=== PATIENT | female | born 1945 | race Caucasian/White ===

== ENCOUNTER 2024-12-21 07:39 | Day surgery (SDC) | payer MEDICARE, SELFPAY ==
[2024-12-15 13:46] LABS: Hematocrit 39.6 % (37-47); Hemoglobin 13.2 g/dL (12.0-15.0); Mean Corp Hgb Conc 33.3 g/dL (32-36); Mean Corpuscular Hgb 31.4 pg (27.0-32.0); Mean Corpuscular Volume 94.3 fL (81-99); Mean Platelet Vol. 10.3 fl (6.2-12.0); Platelet Count 359 K/mm3 (150-450); RBC Distribution Width CV 12.1 % (11.6-14.6); RBC Distribution Width SD 42.1 fl (35.1-43.9)
[2024-12-15 16:30] LABS: Anion Gap 12 (5-15); BUN 18 mg/dL (4-19); BUN/Creat Ratio 23.4 RATIO (10-20); Calcium,Total 9.8 mg/dL (7.6-11.0); Carbon Dioxide 24.3 mmol/L (21.0-32.0); Chloride 99 mmol/L (98-108); Creatinine, Serum 0.75 mg/dL (0.70-1.20); EST Glomerular Filtration Rate 81 (>60); Glucose 148 mg/dL (70-99); Potassium 4.2 mmol/L (3.3-5.1); Sodium Level 136 mmol/L (133-145)
[2024-12-21] VITALS (9 sets, daily range): BP systolic 124–154; BP diastolic 59–84; PULSE 64–76; RESP 14–18; TEMP 36.1–36.6; O2SAT 95–99; BMI 29.0
[2024-12-21] MEDS: Lactated Ringers 1,000 ML 15 ML IV (08:07)
--- NOTE | 2024-12-21 08:10 | PCM.PRE.AN2 ---
ASA Classification* ASA Classification ASA Classification: 2 Assessment & Plan Anesthesia* Anesthesia Assessment Anesthesia Assessment: Discussed sedation and/or anesthesia options, risks, benefits, and alternatives with patient/parents/legal guardian/POA. Questions invited. The patient/parents/legal guardian/POA seems to understand and agrees to proceed with anesthesia plan. Reviewed the physical assessment, medical history, allergy history and patient home medications list prior to surgery/procedure/anesthetic and documented any changes. Performed airway and anesthesia risk assessments. Anesthesia Type Anesthesia Type: MAC History Source History Obtained from:: Patient and Chart Anesthesia Focused Assessment* Temperature: 97.8 F Pulse Rate: 70 Blood Pressure: 154/60 Respiratory Rate: 18 Pulse Ox: 96 Oxygen Delivery Method: Room Air Airway Assessment Mouth opens: >3 cm Mallampati Score: III Teeth Condition: Intact Focused Labs Anesthesia Preop lab: CBC WBC 10.0 K/mm3 (4.4-11.0) 12/15/24 13:12/15/24 RBC 4.20 M/mm3 (4.2-5.4) 12/15/24 13:12/15/24 Hgb 13.2 g/dL (12.0-15.0) 12/15/24 13:12/15/24 Hct 39.6 % (37-47) 12/15/24 13:12/15/24 Plt Count 359 K/mm3 (150-450) 12/15/24 13:12/15/24 CHEMISTRY Potassium 4.2 mmol/L (3.3-5.1) 12/15/24 13:12/15/24 Sodium 136 mmol/L (133-145) 12/15/24 13:12/15/24 BUN 18 mg/dL (4-19) 12/15/24 13:12/15/24 Creatinine 0.75 mg/dL (0.70-1.20) 12/15/24 13:12/15/24 Glucose 148 mg/dL (70-99) H 12/15/24 13:07 12/15/24 COAG Pre-Assessment Diagnosis/Proposed Procedure Planned Operative Procedure(s): Cysto, Injection Bulkamid Anesthesia History Anesthesia History - general inspector: Anesthesia History - general inspector Hx Hospitalization No 12/14/24 11:10 Any Problems With Anesthesia No 12/14/24 11:10 Cholinesterase deficiency No 12/14/24 11:10 You/Your Family Experience No 12/14/24 11:10 fever (hyperthermia) with Relationship Recent Exposure to Contagious No 12/21/24 08:04 Disease Does patient have nerve No 12/14/24 11:10 stimulator Patient instructed to have device shut off --Does patient have Pacemaker No 12/21/24 08:04 or ICD? When Was Last Pacemaker Check QUESTION #4 FULL TEXT: You/Your Family Experience fever (hyperthermia) with Anesthesia Last Oral Intake Last Oral intake: Last Oral Intake NPO since 06:00 12/21/24 08:04 Meds taken in AM with sips of Yes 12/21/24 08:04 water? Meds patient instructed to see med rec 12/21/24 08:04 take am of surgery PONV PONV - general inspector: PONV - general inspector Female Yes 12/14/24 11:10 HX of Motion Sickness No 12/14/24 11:10 HX of N/V After Surgery No 12/14/24 11:10 Non-Smoker Yes 12/14/24 11:10 Duration of Surgery greater No 12/14/24 11:10 than 60 minutes Number of Risk Factors 2 12/14/24 11:10 PONV Score Moderate Risk 12/14/24 11:10 Height & Weight Height & Weight: Anesthesia: Height & Weight Height 5 ft 5 in 12/21/24 08:04 Weight: 79 kg 12/21/24 08:04 Body Mass Index (BMI) 29.0 12/21/24 08:04 Respiratory Assessment Respiratory Assessment - general inspector: Respiratory Tract Infection Hx - general inspector Hx Respiratory Tract Infection No 12/14/24 11:10 STOP Sleep Apnea STOP Sleep Apnea - general inspector: STOP Sleep Apnea - general inspector Hx Hypertension Yes: CONTROLLED WITH MED 12/14/24 11:10 Hx Sleep Apnea No 12/14/24 11:10 CPAP BIPAP Do you snore loudly (louder No 12/14/24 11:10 than talking or can be heard Do you often feel tired/ No 12/14/24 11:10 fatigued/ sleepy during daytime? Has anyone observed you stop No 12/14/24 11:10 breathing during sleep? STOP Results Negative 12/14/24 11:10 QUESTION #5 FULL TEXT : Do you snore loudly (louder than talking or can be heard through closed doors)? Tobacco Use History Tobacco Use History - general inspector: Tobacco Use History - general inspector Tobacco Use Smoking Status Never smoker 12/14/24 11:10 Hx Tobacco Use No 12/14/24 11:10 Years Smoking Packs Smoked per Day Smoking Cessation Date was within the last 15 years Hx Smoking Cessation Date Hx Smoking Cessation Counseling Hematologic Medial History Hematologic Hx - general inspector: Hematologic Medical Hx - physician's assistant Hx of Blood Transfusion No 12/14/24 11:10 Hx of Transfusion in last 3 No 12/14/24 11:10 Months Date of Last Transfusion (if within last 3 months) Ever experience any problems No 12/14/24 11:10 with transfusion(s)? Specify any problems Hx of Preganancy in last 3 N/A 12/14/24 11:10 Months Nurse Filling Out Transfusion NBUCHER 12/14/24 11:10 & Questions: Date: 12/14/24 12/14/24 11:10 Time: 11:11 12/14/24 11:10 Patient unable to answer at this time (ie. confused, unrespo /Reproduction History /Reproductive History - general inspector: /Reproductive Hx- general inspector Hx Now No 12/14/24 11:10 Gestational Age (in weeks): EDC: Hx Hx Para Hx Section SAB No 12/14/24 11:10 Active Medications Active Medications: Current Medications Generic Name Dose Route Start Last Admin Trade Name Freq PRN Reason Stop Dose Admin Cefazolin Sodium 2 gm/ Sodium 110 mls @ 150 mls/hr 12/21/24 09:20 Chloride IV 12/21/24 10:03 INTRAOP ONE Lactated Ringer's 1,000 mls @ 15 mls/hr 12/21/24 08:00 12/21/24 08:07 IV 15 mls/hr .Q48H JASMIN Administration PFSH Medical History Wears glasses Post-menopausal Arthritis High cholesterol History of IBS Non-smoker Home Medications ?Medication ?Instructions ?Recorded ?Last Taken ?Type atorvastatin 10 mg tablet 10 mg PO QHS 12/14/24 Unknown History calcium 500 mg (as 1 tab PO DAILY 12/14/24 Unknown History carbonate)-vitamin D3 10 mcg (400 unit) tablet (Calcium 500 + D) cholecalciferol (vitamin D3) 25 25 mcg PO DAILY 12/14/24 Unknown History mcg (1,000 unit) capsule (Vitamin D3) coenzyme Q10 100 mg capsule 100 mg PO DAILY 12/14/24 Unknown History diltiazem HCl 240 mg 240 mg PO QHS 12/14/24 Unknown History capsule,extended release 24 hr estradiol 0.01% (0.1 mg/gram) 1 g vaginal DAILY 12/14/24 Unknown History vaginal cream gabapentin 300 mg capsule 300 mg PO QHS 12/14/24 Unknown History hydrochlorothiazide 25 mg tablet 25 mg PO DAILY 12/14/24 Unknown History irbesartan 300 mg tablet 300 mg PO DAILY 12/14/24 12/21/24 06:00 History mecobalamin (vitamin B12) 1,000 1,000 mcg PO DAILY 12/14/24 Unknown History mcg lozenges qespwtmi-bvpecern-fjxig acid 500 1 tab PO DAILY 12/14/24 Unknown History mcg-lutein 5 mg-zeaxanth 1 mg tablet (Macular Vitamin) Allergy/AdvReac Type Severity Reaction Status Date / Time oxycodone (From Percocet) Allergy Severe Angioedema Verified 12/21/24 08:03 codeine AdvReac Intermediate Nausea Verified 12/21/24 08:03 diclofenac AdvReac Intermediate Nausea Verified 12/21/24 08:03 ibuprofen AdvReac Intermediate Nausea Verified 12/21/24 08:03 meloxicam AdvReac Intermediate Nausea Verified 12/21/24 08:03 methylprednisolone AdvReac Intermediate PALPITATION Verified 12/21/24 08:03 S naproxen AdvReac Intermediate PALPITATION Verified 12/21/24 08:03 S Opioids - Morphine Analogues AdvReac Intermediate Nausea/Vom/ Verified 12/21/24 08:03 Diarrhea prednisone AdvReac Intermediate PALPITATIOI Verified 12/21/24 08:03 NS Surgical History History of back surgery (~2022) History of cardiac radiofrequency ablation History of breast biopsy History of total right knee replacement Social History Smoking Status: Never smoker Addt'l Information Additional Findings: >4 METS Review of Systems (Anesthesia) ROS Narrative System reviewed and no additional complaints, except as documented. Physical Exam Const alert and oriented x3 Resp normal respiratory effort and normal air movement Auscultation: clear to auscultation bilaterally Cardio regular rate and regular rhythm
--- NOTE | 2024-12-21 09:19 | EX.PCM.DISCH ---
Discharge Instructions Diet Discharge Diet: No restrictions Activity Discharge Activity: May Shower Additional Activity Instructions:: No strenuous activity for 2 days, no exercise and no walking dog Dressing / Incision Call your doctor if your incision/area has: Continuous Slow Oozing, Sudden Increased Bleeding, Increased Pain/ Swelling and Foul Smelling Discharge Call your doctor if you observe: Fever of 101 or Higher, Inability to urinate and Inability to have a bowel movement Follow Up Care Please Follow Up With: Stephanie Herrera MD When: 1 to 2 weeks in the office, the staff will call to make arrangements. Test Results: Test results from this visit will be discussed in further detail at your follow-up appointment, if applicable. Discharge Plan Admission Attending Provider: Stephanie Herrera Primary Care Provider: Guerita Stephen Instructions Print Language: Armenian Discharge Orders/Prescriptions Prescriptions: New phenazopyridine 100 mg tablet 100 mg PO TID PRN (Reason: pain) 30 Days Qty: 30 3RF cephalexin 500 mg capsule 500 mg PO Q12 3 Days Qty: 6 0RF ondansetron 4 mg tablet,disintegrating 4 mg PO Q8H PRN (Reason: nausea and vomiting) Qty: 10 0RF Continued calcium carbonate-vitamin D3 [Calcium 500 + D] 500 mg-10 mcg (400 unit) tablet 1 tab PO DAILY cholecalciferol (vitamin D3) [Vitamin D3] 25 mcg (1,000 unit) capsule 25 mcg PO DAILY coenzyme Q10 100 mg capsule 100 mg PO DAILY mecobalamin (vitamin B12) 1,000 mcg lozenge 1,000 mcg PO DAILY Rx Instructions: allow to dissolve in mouth OR may chew lightly before swallowing Macular Vitamin 500-5-1 mcg-mg-mg tablet 1 tab PO DAILY atorvastatin 10 mg tablet 10 mg PO QHS diltiazem HCl 240 mg capsule,extended release 24hr 240 mg PO QHS estradiol 0.01 % (0.1 mg/gram) cream 1 g vaginal DAILY gabapentin 300 mg capsule 300 mg PO QHS hydrochlorothiazide 25 mg tablet 25 mg PO DAILY irbesartan 300 mg tablet 300 mg PO DAILY Disposition Disposition (needs filled in before D/C Order can be placed): Home, Self Care
--- NOTE | 2024-12-21 09:21 | OP.PCM_ITS ---
Operative Report (Standard) Operative Information Date of Procedure: 12/21/24 Pre-Operative Diagnosis: Intrinsic sphincter deficiency, stress urinary incontinence Post-Operative Diagnosis: Same Surgery/Procedure Performed: Bulkamid, cystoscopy still pump operator: No Type of Anesthesia: MAC RN Documented Start/Stop Times: Operation Date: 12/21/24 09:20 Case Time Into Pre-Op 12/21/24 07:46 Out of Pre-Op 12/21/24 09:22 Anesthesia Start 12/21/24 09:23 Into Room 12/21/24 09:23 Procedure Start 12/21/24 09:36 Procedure Start Time: 09:36 Procedure Stop Time: 09:38 Select all DRAINS/GRAFTS/IMPLANTS that apply: Implanted device Implanted device details: Bulkamid Estimated Blood Loss: <5cc Specimen collected: No Description of surgery: The patient is a 79-year-old female with intrinsic sphincter deficiency and stress urinary incontinence. Informed consent was obtained, she presents for surgical intervention with Bulkamid injection. She was taken to the operating room and placed on the operating room table. Anesthesia monitored the head, neck, airway, IV access and vital signs throughout the case. Once anesthesia was appropriately administered, she was placed into dorsolithotomy position was prepped and draped in usual sterile fashion. The red rubber catheter was utilized to empty her bladder. The Bulkamid cystoscope was inserted into the urethra. At the bladder neck the needle was inserted to 2 cm and the entire apparatus was brought back so that the needle was at the bladder neck. At the 7 o'clock position the needle with the bevel medial was inserted into the submucosa and one half of a syringe of Bulkamid was injected creating a pillow. The same process was repeated at the 5 o'clock position, 1 o'clock position and finally the 11 o'clock position. The pillows were coapted appropriately. The cystoscope was removed. She was awakened and taken to the recovery room in good condition. There were no complications during this procedure. Surgical Findings: 4 pillows of Bulkamid coapted appropriately Complications Complications: No Admit VTE Documentation VTE Present on Admission: Yes VTE Mechan Device Prophylaxis: SCD's VTE Pharm Prophylaxis ordered?: No Reason prophylaxis not ordered: Treatment Not Indicated
[2024-12-21] MEDS: Cefazolin 2 GM in 0.9% Normal Saline (100mL Bag) 100 ML IV (09:23)
--- NOTE | 2024-12-21 09:59 | PCM.POST.ANE ---
Anesthesia: Postop Eval I Current Vital Signs Temperature: 97.6 F Pulse Rate: 72 Blood Pressure: 124/74 Respiratory Rate: 14 Pulse Ox: 96 Oxygen Delivery Method: Room Air Assessment Airway patent: Yes Spontaneous unlabored respirations: Yes Mental status: Awake nausea: No Vomiting: No Anesthesia Complication: No Fluid Hydration Crystalloid volume administer (ml): 400 Total IV fluid infused: 400 Progress Note Anesthesia document: Postop Eval 1 completed: Yes
--- NOTE | 2024-12-21 10:55 | POSTOPAN2_ITS ---
Anesthesia Postop Eval I Sum Postop Eval Completion status Anesthesia document: Postop Eval 1 completed: Yes Anesthesia Postop Eval I Summary Anesthesia Postop Eval I Summary: Anesthesia Postop Eval I: Assessment Summary Airway patent Yes 12/21/24 09:59 PROGRAM [email or web address] Spontaneous unlabored Yes 12/21/24 09:59 PROGRAM [email or web address] respirations Mental status Awake 12/21/24 09:59 PROGRAM [email or web address] nausea No 12/21/24 09:59 PROGRAM ADMINISTRATOR.[email or web address] Vomiting No 12/21/24 09:59 PROGRAM [email or web address].[email or web address] Anesthesia Postop Eval I: Fluid Summary Crystalloid volume administer 400 12/21/24 09:59 PROGRAM [email or web address] (ml) Colloids volume administered ( ml) Blood Product volume administered (ml) Total IV fluid infused 400 12/21/24 09:59 PROGRAM [email or web address].[email or web address] Anesthesia Postop Eval I: Summary Notes Anesthesia Complication No 12/21/24 09:59 PROGRAM [email or web address].[email or web address] Anesthesia Complication Comment: Post-operative progress note Anesthesia: Postop Eval II Evaluation Mental status: Awake and Calm Pain Level: 1 nausea: No Vomiting: No Complications Anesthesia Complication: No
--- NOTE | 2024-12-21 10:55 | PCM.POSTANE2 ---
Anesthesia Postop Eval I Sum Postop Eval Completion status Anesthesia document: Postop Eval 1 completed: Yes Anesthesia Postop Eval I Summary Anesthesia Postop Eval I Summary: Anesthesia Postop Eval I: Assessment Summary Airway patent Yes 12/21/24 09:59 [email or web address] Spontaneous unlabored Yes 12/21/24 09:59 [email or web address] respirations Mental status Awake 12/21/24 09:59 [email or web address] nausea No 12/21/24 09:59 WARP [email or web address].[email or web address] Vomiting No 12/21/24 09:59 WARP [email or web address] Anesthesia Postop Eval I: Fluid Summary Crystalloid volume administer 400 12/21/24 09:59 WARP [email or web address] (ml) Colloids volume administered ( ml) Blood Product volume administered (ml) Total IV fluid infused 400 12/21/24 09:59 WARP [email or web address].[email or web address] Anesthesia Postop Eval I: Summary Notes Anesthesia Complication No 12/21/24 09:59 WARP [email or web address].[email or web address] Anesthesia Complication Comment: Post-operative progress note Anesthesia: Postop Eval II Evaluation Mental status: Awake and Calm Pain Level: 1 nausea: No Vomiting: No Complications Anesthesia Complication: No
== END 2024-12-21 11:30 | disposition home or self-care (01) ==
LOC: SDC 07:40 → AC 07:41
PROVIDERS: PCP Internal Medicine; Referring Provider Urology; Visit Provider Urology
PROC: 3E0K8GC Introduction of Other Therapeutic Substance into Genitourinary Tract, Via Natural or Artificial Opening Endoscopic (ICD-10-PCS; CPT 52287; principal; 2024-12-21 09:10)
DX: N36.42 Intrinsic sphincter deficiency (ISD) (principal); N39.3 Stress incontinence (female) (male); N36.2 Urethral caruncle; I10 Essential (primary) hypertension
CPT/HCPCS: 51715; 00910; 36415; 80048; 85027; L8606; J2405